=== PATIENT | female | born 1975 | race Native Hawaiian/Other Pacific Islander ===

== ENCOUNTER 2018-05-21 11:34 | Outpatient (CLI) | payer BC | END 2018-05-21 19:50 | disposition home or self-care (01) | LOC: US 11:34 | DX: R10.11 Right upper quadrant pain (principal) | CPT/HCPCS: 74022 ==

== ENCOUNTER 2020-07-07 11:03 | Outpatient (CLI) | payer BC | END 2020-07-07 19:24 | disposition home or self-care (01) | LOC: MRI 11:03 | PROVIDERS: ATTEND Registered Nurse | DX: M54.12 Radiculopathy, cervical region (principal) ==

== ENCOUNTER 2021-04-26 17:00 | Outpatient (CLI) | payer BC | END 2021-04-26 19:35 | disposition home or self-care (01) | LOC: RAD 17:00 | PROVIDERS: ATTEND Registered Nurse | DX: R06.2 Wheezing (principal) ==

== ENCOUNTER 2021-12-11 14:47 | Outpatient (CLI) | payer BC | END 2021-12-11 19:02 | disposition home or self-care (01) | LOC: MRI 14:47 | PROVIDERS: ATTEND Orthopaedic Surgery Orthopaedic Surgery of the Spine | DX: M54.12 Radiculopathy, cervical region (principal); G44.89 Other headache syndrome; M47.892 Other spondylosis, cervical region; M46.02 Spinal enthesopathy, cervical region; R20.2 Paresthesia of skin; M25.511 Pain in right shoulder ==